=== PATIENT | male | born 1940 | race Caucasian/White ===

== ENCOUNTER → 2016-08-13 | Day surgery (SDC) | payer MEDICARE ==
[~2016-08-13] MED LIST: BUPIVACAINE/EPINEPHRINE 0.25% 50 ML VIAL ONE; LACTATED RINGER'S 1,000 ML BAG IV ONE; LACTATED RINGER'S 1000 ML INJ 1,000 ML ONE; MEPERIDINE HCL 25 MG/ML VIAL ONE; MEPERIDINE HCL 50 MG/ML VIAL ONE; MIDAZOLAM HCL 2 MG/2 ML VIAL ONE; ONDANSETRON HCL 4 MG/2 ML VIAL IV PUSH ONE; PROPOFOL 200 MG/20 ML AMP IV ONE; SODIUM CHLOR 0.9% 250 ML BAG IV ONE; VANCOMYCIN HCL 1000 MG VIAL ONE; metroNIDAZOLE 500 MG INJ 100 ML IV ONE
--- NOTE | 2016-08-13 12:35 | TN ---
cc: OTIS COWAN M.D. DATE OF SURGERY: 08/13/2016 PREOPERATIVE DIAGNOSIS Symptomatic 2.5 cm gallstone with right upper quadrant pain and nausea after fatty foods, biliary colic. POSTOPERATIVE DIAGNOSIS Symptomatic 2.5 cm gallstone with right upper quadrant pain and nausea after fatty foods, biliary colic. PROCEDURE Laparoscopic cholecystectomy. SURGEON Dr. Otis Cowan [employer] Daily ANESTHESIA General. INDICATIONS This is a pleasant 76-year-old gentleman with prior history of right colon resection, who has had upper abdominal intermittent discomfort with fatty food intolerance for many years. He had a more severe episode following fried fish associated with nausea. Ultrasound demonstrated a 2.5 cm gallstone without gallbladder wall thickening or pericholecystic fluid. INTRAOPERATIVE FINDINGS Gallbladder covered in dense scar tissue, likely related to prior right colon resection as well as possible calculous cholecystitis. Gallbladder removed and sent to pathology. ESTIMATED BLOOD LOSS Less than 10 mL. The procedure was assisted by my nurse practitioner. The specific skill set of a nurse practitioner was medically necessary to proceed with efficiency and adequate visualization of the important anatomic structures. During the surgical procedure the surgical attendant was at the back table providing appropriate instrumentation and the nurse practitioner was directly assisting me through the entirety of the procedure. DESCRIPTION OF PROCEDURE IN DETAIL The patient was identified as Sung Farley, taken to the operating room and placed in supine position. Sequential compression devices were placed on bilateral lower extremities. Following induction of adequate general endotracheal anesthesia, the patient's abdomen was prepped and draped in the usual sterile fashion with Betadine. A timeout procedure was performed. Following completion of the timeout procedure to everyone's satisfaction within the room, 0.25% Marcaine with epinephrine was placed at each incision site. Due to a previous midline laparotomy scar in the right lateral subcostal position, a 2-3 cm transverse incision was carried out with a scalpel. Dissection continued posteriorly through subcutaneous fatty tissue to the anterior fascial layer. The underlying muscle was spread. The intervening fascial layer was split and the underlying muscle spread. The peritoneum was identified and grasped with a hemostat, opened with a scalpel, and confirmation of the intraperitoneal location was made visually. The [employer] 5 mm balloon-tip Clark was placed in the peritoneal cavity, its balloon inflated with CO2 insufflation until a level of 15 mmHg ensued. The laparoscopic camera was placed in the abdominal cavity and the adhesion of a loop of colon and omentum to the midline was identified. This was avoided as three additional 5 mm trocars were placed in the peritoneal cavity under direct laparoscopic view after incision of the skin with a scalpel. The gallbladder was removed from densely adherent scar tissue under direct laparoscopic visualization using a Harmonic scalpel and blunt dissection. The gallbladder is then removed from the gallbladder fossa in a dome-down technique using the Harmonic scalpel. A Aydee-Flex liver retractor was used to assist in adequate retraction and visualization. The cystic arterial branch was divided with the Harmonic scalpel. The cystic duct was isolated from surrounding tissues, ligated proximally and distally with 0-PDS Endoloops and divided between the Endoloops. The gallbladder was placed into an Endo retriever bag and removed through the right lateral subcostal fascial port incision site and passed off the field for pathologic evaluation. The right upper quadrant was examined. There was no evidence of bleeding or bilious drainage. The cystic duct ligature remained intact. No other intra-abdominal abnormalities were identified. About 25 cc of local anesthetic was placed in the subhepatic position. Trocars were removed under direct visualization. There was no evidence of bleeding from the trocar sites. The abdomen was desufflated actively through the subcostal port which was then removed. Three fascial layers in the subcostal position were approximated with single 0 Vicryl interrupted [id number] suture. Skin incisions were approximated with 4-0 Monocryl subcuticular sutures. Dressings were applied with Mastisol and half-inch brown Steri-Strips. The patient tolerated the procedure without apparent complication. Sponge, needle and instrument counts were correct at the end of the case. MD OCTAVIA Cunningham/CHARLIE /12:10 PM /12:18 PM
== END | disposition home or self-care (01) ==
LOC: ESDC 09:02
PROVIDERS: ATTEND Surgery Trauma Surgery
DX: K80.10 Calculus of gallbladder with chronic cholecystitis without obstruction (principal)
CPT/HCPCS: 00790; 47562; 88304; J2175; J2250; J2405; J3010; J3370; J7050; J7120